=== PATIENT | female | born 1960 | race Two or more races ===

== ENCOUNTER → 2022-03-09 | Outpatient (REF) | payer OTHER | LOC: M SFHCDERM 14:18 | PROVIDERS: ATTEND Physician Assistant | DX: D23.61 Other benign neoplasm of skin of right upper limb, including shoulder (principal) ==

== ENCOUNTER → 2022-11-20 | Outpatient (REF) | payer OTHER | LOC: M LAB REF 14:55 | PROVIDERS: ATTEND Surgery | DX: L28.1 Prurigo nodularis (principal) ==

== ENCOUNTER → 2022-12-07 | Outpatient (REF) | payer OTHER | LOC: M LAB REF 17:57 | PROVIDERS: ATTEND Surgery | DX: D48.5 Neoplasm of uncertain behavior of skin (principal) ==

== ENCOUNTER → 2025-01-10 | Outpatient (REF) | payer MEDICARE, OTHER | LOC: M SFHCDERM 13:03 | PROVIDERS: ATTEND Physician Assistant | DX: D22.9 Melanocytic nevi, unspecified (principal) ==